=== PATIENT | female | born 1995 | race Caucasian/White ===

== ENCOUNTER 2023-02-11 12:42 | Outpatient (CLI) | payer OTHER, SELFPAY ==
--- NOTE | ~2023-02-11 | US_ITS ---
EXAMINATION: US breast BI complete HISTORY: Palpable lump in the upper inner quadrant of the left breast TECHNIQUE: Complete bilateral breast ultrasound is performed including all four quadrants and the sub areolar aspects of the breasts FINDINGS: No sonographic correlate is identified for the reported palpable abnormality of the left br east. No suspicious cystic or solid mass is seen in either breast. IMPRESSION: No specific sonographic correlate is identified for the reported palpable abnormality of concern. Fur ther evaluation at this time should be based on clinical assessment. Continued follow-up physical exa mination is recommended. BI-RADS Category 1: Negative Reviewed, dictated and finalized at location L. IMPRESSION: No specific sonographic correlate is identified for the reported palpable abnor mality of concern. Further evaluation at this time should be based on clinical assessment. Continued follow-up physical examination is recommended. BI-RADS Category 1: Negative
== END 2023-02-11 12:43 | disposition home or self-care (01) ==
LOC: ANHIMG 12:48
PROVIDERS: PCP Physician Assistant; Visit Provider Nurse Practitioner
DX: N63.0 Unspecified lump in unspecified breast (principal)
CPT/HCPCS: 76641